=== PATIENT | female | born 1985 | race Caucasian/White ===

== ENCOUNTER → 2017-05-31 | Outpatient (CLI) | payer OTHER ==
--- NOTE | 2017-05-31 18:46 | RADIOLOGY REPORT (SQ) ---
EXAM DESCRIPTION: U/S THYROID/SFT TISS HD NECK COMPLETED DATE/TIME: 05/31/2017 6:30 pm REASON FOR STUDY: LOCALIZED SWELLING, MASS AND LUMP, NECK R22.1 LOCALIZED SWELLING, MASS AND LUMP, NECK COMPARISON: None. TECHNIQUE: Dynamic and static grayscale images acquired of the localized site of clinical concern an d recorded on PACS. Additional selected color Doppler and spectral images recorded. SITE OF CONCERN: Soft tissues of the neck. LIMITATIONS: None. FINDINGS: SOFT TISSUES: On the right side there is an oval hypoechoic mass measuring 0.7 x 1.2 x 1. 6 cm. Doppler evaluation demonstrates vascularity. Possible small fatty hilum. OTHER: No other significant finding. IMPRESSION: HYPOECHOIC MASS ON THE RIGHT SIDE OF THE NECK CORRESPONDING TO THE PALPABLE FINDING. TH IS COULD BE AN ABNORMAL LYMPH NODE. CT OF THE NECK WITH CONTRAST RECOMMENDED FOR MORE DEFINITIVE LIDIA LUATION. TECHNICAL DOCUMENTATION: JOB ID: [id number] [employer]- All Rights Reserved
== END ==
LOC: RAD 17:36
PROVIDERS: ATTEND Physician Assistant
DX: R22.1 Localized swelling, mass and lump, neck (principal)
CPT/HCPCS: 76536

== ENCOUNTER → 2017-06-15 | Outpatient (CLI) | payer OTHER ==
--- NOTE | 2017-06-15 17:17 | RADIOLOGY REPORT (SQ) ---
EXAM DESCRIPTION: CT SOFT TISSUE NECK WITH COMPLETED DATE/TIME: 06/15/2017 1:38 pm REASON FOR STUDY: LOCALIZED SWELLING MASS AND LUMP R22.1 LOCALIZED SWELLING, MASS AND LUMP, NECK COMPARISON: None. TECHNIQUE: Post IV contrasted scanning from skull base through lung apices with review of bone, soft tissue and lung windows. Reconstructed coronal and sagittal MPR images reviewed. All images stored on PACS. All CT scanners at this facility use dose modulation, iterative reconstruction, and/or weight based d osing when appropriate to reduce radiation dose to as low as reasonably achievable (ALARA). [facility]: Dose Right [facility]: CareDose [facility]: Dose Right [facility]: Teradose 4D [facility]: Vanilla Breeze CONTRAST TYPE AND DOSE: contrast/concentration: Isovue 370.00 mg/ml; Total Contrast Delivered: 75.0 ml; Total Saline Delivered: 55.0 ml RENAL FUNCTION: None required. The patient is less than 50 years old. RADIATION DOSE: 23.5 mGy . LIMITATIONS: None. FINDINGS: Patient indicates a palpable nodule in the posterior right neck. The area of clinical con cern was marked with a BB. Deep to the marker, a 1.2 x 0.9 cm right posterior triangle lymph node is present on axial image 43. This is abnormal but nonspecific. Remainder of the neck soft tissues de monstrates no other significant cervical adenopathy. Multiple less than 5 mm short axis carotid spac e and posterior triangle lymph nodes of the of doubtful clinical significance SKULL BASE: Intact. MAJOR SALIVARY GLANDS: No solid or cystic masses. No inflammatory changes. LYMPHADENOPATHY: As above MUCOSAL MASSES OR ASYMMETRY: No mucosal masses or asymmetry. LARYNX/CORDS: No abnormal findings. VASCULAR STRUCTURES: The major vessels are patent. LUNG APICES: Clear. BONES: Intact. THYROID: Normal size. No masses. PARANASAL SINUSES: Clear. OTHER: No other significant finding. IMPRESSION: 1.2 x 0.9 cm right posterior triangle lymph node, correlates with palpable abnormality o f concern. No other neck masses or significant cervical adenopathy. TECHNICAL DOCUMENTATION: JOB ID: [id number] Quality ID # [id number]: Final reports with documentation of one or more dose reduction techniques (e.g., Au tomated exposure control, adjustment of the mA and/or kV according to patient size, use of iterative reconstruction technique) 2010 [employer]- All Rights Reserved
== END ==
LOC: RAD 12:32
PROVIDERS: ATTEND Physician Assistant
DX: R22.1 Localized swelling, mass and lump, neck (principal)
CPT/HCPCS: 70491